=== PATIENT | male | born 1955 | race African-American/Black ===

== ENCOUNTER → 2016-09-16 | Outpatient (CLI) | payer MEDICARE, MEDICAID ==
[~2016-09-16] MED LIST: ALLO100T PO; AMLO-511 PO; DOCU250C91 PO; FAMO20 PO; INDO25 PO; LABE100 PO; PHOSLOC PO; TRAM50TA4 PO
== END | disposition home or self-care (01) ==
LOC: RADPV 12:18
PROVIDERS: ATTEND Orthopaedic Surgery
DX: M47.896 Other spondylosis, lumbar region (principal); M51.37 Other intervertebral disc degeneration, lumbosacral region; M25.78 Osteophyte, vertebrae; M12.88 Other specific arthropathies, not elsewhere classified, other specified site
CPT/HCPCS: 72100

== ENCOUNTER → 2017-01-13 | Outpatient (CLI) | payer BC, MEDICARE, MEDICAID | END | disposition home or self-care (01) | LOC: RADPV 09:46 | PROVIDERS: ATTEND Specialist | DX: M16.0 Bilateral primary osteoarthritis of hip (principal); M25.852 Other specified joint disorders, left hip; M25.851 Other specified joint disorders, right hip; M25.751 Osteophyte, right hip; M19.071 Primary osteoarthritis, right ankle and foot; M77.31 Calcaneal spur, right foot | CPT/HCPCS: 73521 ==

== ENCOUNTER → 2017-06-29 | Outpatient (CLI) | payer BC, MEDICARE, MEDICAID | END | disposition home or self-care (01) | LOC: RADPV 14:54 | PROVIDERS: ATTEND Family Medicine | DX: M16.12 Unilateral primary osteoarthritis, left hip (principal) | CPT/HCPCS: 73502; 73503 ==

== ENCOUNTER 2018-01-11 09:26 | Emergency (ER) | payer BC, MEDICAID ==
[~2018-01-11] VITALS: Ht 172.7 cm; Wt 85.9 kg
[2018-01-11] MEDS ORDERED: CLON-570 PO (10:15)
[2018-01-11] MEDS ORDERED: GABA-529 PO (10:15)
[2018-01-11] MEDS ORDERED: SUCR500T PO (10:15)
[2018-01-11 10:30] LABS: BASOPHILS % (AUTO) 1.5 % (0.0-2.0); EOSINOPHILS % (AUTO) 5.8 % (1.0-6.0); HEMATOCRIT 38.5 % (41-53); HEMOGLOBIN 13.1 g/dL (13.5-17.5); LYMPHOCYTES # (AUTO) 1.7 K/uL (1.0-4.8); LYMPHOCYTES % (AUTO) 28.5 % (22.0-44.0); MEAN CORPUSCULAR HEMOGLOBIN 32.3 pg (26.0-34.0); MEAN CORPUSCULAR HGB CONC 34.2 G/dL (31.0-37.0); MEAN CORPUSCULAR VOLUME 95 fL (80-100); MONOCYTES # (AUTO) 0.7 K/uL (0.1-1.0); MONOCYTES % (AUTO) 11.9 % (2.0-9.0); NEUTROPHILS # (AUTO) 3.2 K/uL (1.8-7.7); NEUTROPHILS % (AUTO) 52.3 % (40.0-70.0); PLATELET COUNT (AUTO) 199 K/uL (150-450); RED BLOOD CELL COUNT(AUTO) 4.07 MIL/uL (4.50-5.90); RED CELL DISTRIBUTION WIDTH 16.4 % (11.5-14.5)
[2018-01-11 10:47] LABS: ALANINE AMINOTRANSFERASE 17 U/L (12-78); ALBUMIN 3.1 g/dL (3.4-5.0); ALKALINE PHOSPHATASE 209 U/L (46-116); ANION GAP 12 mmol/L (8-16); ASPARTATE AMINOTRANSFERASE 21 U/L (15-37); BILIRUBIN,TOTAL 0.4 mg/dL (0.1-1.0); CALCIUM, TOTAL 8.4 mg/dL (8.8-10.5); CARBON DIOXIDE 32 mmol/L (22-29); CHLORIDE 96 mmol/L (98-107); CREATININE 9.49 mg/dL (0.60-1.30); GLOMERULAR FILTR. RATE CALC 7 mL/min (>60); GLUCOSE,RANDOM 86 mg/dL (70-110); LIPASE 124 U/L (73-393); POTASSIUM 4.2 mmol/L (3.5-5.1); SODIUM SERUM 140 mmol/L (136-145); TOTAL PROTEIN, SERUM 7.3 g/dL (6.4-8.2); UREA NITROGEN, BLOOD 41 mg/dL (7-18)
[2018-01-11 11:16] LABS: ACETAMINOPHEN < 2 mcg/mL (10-30)
[2018-01-11 14:45] VITALS: BP 145/78
== END 2018-01-11 14:47 | disposition home or self-care (01) ==
LOC: EMS 09:27
DX: T40.2X1A Poisoning by other opioids, accidental (unintentional), initial encounter (principal); M79.1 Myalgia; I12.0 Hypertensive chronic kidney disease with stage 5 chronic kidney disease or end stage renal disease; E11.22 Type 2 diabetes mellitus with diabetic chronic kidney disease; N18.6 End stage renal disease; E78.00 Pure hypercholesterolemia, unspecified; F17.200 Nicotine dependence, unspecified, uncomplicated; Z99.2 Dependence on renal dialysis; Y92.89 Other specified places as the place of occurrence of the external cause
CPT/HCPCS: 36415; 80053; 83690; 84484; 85025; 93005; 99285; G0480 ×2; G0481

== ENCOUNTER → 2018-02-03 | Outpatient (CLI) | payer BC, MEDICAID ==
[~2018-02-03] MED LIST changes: +CLON-570 PO; -DOCU250C91 PO; -FAMO20 PO; +GABA-529 PO; -INDO25 PO; -PHOSLOC PO; +SUCR500T PO; -TRAM50TA4 PO
== END | disposition home or self-care (01) ==
LOC: RADPV 14:43
PROVIDERS: ATTEND Internal Medicine Nephrology
DX: M25.552 Pain in left hip (principal); I12.0 Hypertensive chronic kidney disease with stage 5 chronic kidney disease or end stage renal disease; E11.22 Type 2 diabetes mellitus with diabetic chronic kidney disease; N18.6 End stage renal disease; E78.00 Pure hypercholesterolemia, unspecified; J44.1 Chronic obstructive pulmonary disease with (acute) exacerbation
CPT/HCPCS: 72170

== ENCOUNTER → 2018-12-30 | Outpatient (CLI) | payer MEDICARE, MEDICAID ==
[~2018-12-30] MED LIST changes: -AMLO-511 PO; +AMLO5TAB9 PO; -LABE100 PO; +LABE100T8 PO
== END | disposition home or self-care (01) ==
LOC: RADPV 14:22
PROVIDERS: ATTEND Family Medicine
DX: R76.11 Nonspecific reaction to tuberculin skin test without active tuberculosis (principal); I70.0 Atherosclerosis of aorta; I51.7 Cardiomegaly

== ENCOUNTER → 2019-06-29 | Outpatient (CLI) | payer BC, MEDICAID ==
[~2019-06-29] MED LIST changes: -CLON-570 PO; +CLON0.1T83 PO
== END | disposition home or self-care (01) ==
LOC: RADPV 14:20
PROVIDERS: ATTEND Nurse Practitioner
DX: R05 Cough (principal); J98.4 Other disorders of lung

== ENCOUNTER → 2019-11-03 | Outpatient (CLI) | payer BC, MEDICAID ==
[~2019-11-03] MED LIST changes: +GABA-1216 PO; -GABA-529 PO
== END | disposition home or self-care (01) ==
LOC: RADPV 08:40
PROVIDERS: ATTEND Internal Medicine Nephrology
DX: N28.89 Other specified disorders of kidney and ureter (principal); R31.9 Hematuria, unspecified
CPT/HCPCS: 76770

== ENCOUNTER → 2020-01-02 | Outpatient (CLI) | payer BC, OTHER ==
[~2020-01-02] MED LIST changes: +AMLO-257 PO; -AMLO5TAB9 PO; +IOVERSOL 320 MG/ML 100 ML VIAL ONE; +SODIUM CHLORIDE 0.9% 100 ML ONE
== END | disposition home or self-care (01) ==
LOC: RADMN 10:11
PROVIDERS: ATTEND Internal Medicine Nephrology
DX: I70.0 Atherosclerosis of aorta (principal); I51.7 Cardiomegaly; N28.1 Cyst of kidney, acquired; N40.0 Benign prostatic hyperplasia without lower urinary tract symptoms; N26.1 Atrophy of kidney (terminal); J98.11 Atelectasis; M51.37 Other intervertebral disc degeneration, lumbosacral region; R16.1 Splenomegaly, not elsewhere classified; N18.6 End stage renal disease
CPT/HCPCS: 74177; J7050; Q9967